=== PATIENT | female | born 1990 | race Caucasian/White ===

== ENCOUNTER → 2019-04-09 | Outpatient (CLI) | payer OTHER ==
--- NOTE | 2019-04-09 08:12 | USB ---
Reason for exam: clinical finding. History: Family history of breast cancer in paternal grandmother. Indicated problem(s): pain in the left breast. Physical Findings: Nurse Summary: Patient complains of left breast lateral pain x 6-8 months (nurse jacinto). US Breast LT Left complete breast ultrasound includes all four quadrants, the retroareolar region and axilla. Finding demonstrates a 0.4 x 0.5 x 0.5cm lesion too small to characterize at the nipple. This is lobulated and hypoechoic, 6 month follow up recommended. These results were verbally communicated with the patient and result sheet given to the patient on 04/09/19. ASSESSMENT: Probably benign, BI-RAD 3 RECOMMENDATION: Follow-up diagnostic mammogram of the left breast in 6 months. Manage on a clinical basis with regard to lateral left breast pain.
== END | disposition home or self-care (01) ==
LOC: RADUSWWP 07:06
PROVIDERS: ATTEND Pediatrics
DX: N64.4 Mastodynia (principal)